=== PATIENT | female | born 1945 | race Caucasian/White ===

== ENCOUNTER → 2017-02-15 | Outpatient (CLI) | payer MEDICARE, OTHER ==
[~2017-02-15] MED LIST: AMLO-145 PO; CALC-395 PO; CLIN-72 PO; DOCU100C PO; FERR240T9 PO; HYDR-2458 PO; HYDR25TA6 PO; IBUP-1542 PO; LOSA50TA2 PO; MELO-109 PO; METF-382 PO; OMEP40CA6 PO; OXYB5TAB7 PO; PHEN16.228 PO; SMV40T PO; VITA400C15 PO
--- NOTE | 2017-02-15 14:22 | RADRPT ---
PROCEDURE: XR Chest. CLINICAL INDICATION: Chest pain. TECHNIQUE: Two views. Frontal and lateral. COMPARISON: 04/21/2014. FINDINGS: There is a calcified granuloma in the left lung base laterally. The lungs are otherwise clear. The heart size is normal. There is calcification in the aorta consistent with atherosclerosis. There is no pleural effusion. There is no pneumothorax. IMPRESSION: 1. Previous granulomatous disease. 2. Atherosclerosis. 3. Otherwise normal chest x-ray. RPTAT: QQ .Deangelo Asencio MD, MD Date Time Electronically viewed and signed by .Deangelo Asencio MD, on 02/15/2017 14:22 .R/
== END | disposition home or self-care (01) ==
LOC: RAD 09:00
PROVIDERS: ATTEND Internal Medicine
DX: R07.9 Chest pain, unspecified (principal); I70.90 Unspecified atherosclerosis; L92.9 Granulomatous disorder of the skin and subcutaneous tissue, unspecified
CPT/HCPCS: 71020